=== PATIENT | male | born 1940 | race Caucasian/White ===

== ENCOUNTER 2022-06-06 20:43 | Emergency (ER) | payer OTHER ==
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
--- NOTE | 2022-06-06 22:06 | XR ---
EXAMINATION TYPE: XR thoracic spine complete DATE OF EXAM: 06/06/2022 COMPARISON: NONE HISTORY: Pain TECHNIQUE: 5 view FINDINGS: Thoracic vertebra have normal alignment. Posterior elements are intact. There is no paraspi nal mass. There is multilevel degenerative anterior spur formation. 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 No fracture.
[2022-06-06 22:22] VITALS: BP 136/75; PULSE 74; RESP 18; TEMP 98.3
== END 2022-06-06 22:22 | disposition home or self-care (01) ==
LOC: EC 20:43
DX: M54.9 Dorsalgia, unspecified (principal); E11.9 Type 2 diabetes mellitus without complications; E78.5 Hyperlipidemia, unspecified; M19.90 Unspecified osteoarthritis, unspecified site; Z79.82 Long term (current) use of aspirin; Z79.899 Other long term (current) drug therapy; V49.40XA Driver injured in collision with unspecified motor vehicles in traffic accident, initial encounter
CPT/HCPCS: 72072; 99284